=== PATIENT | female | born 1945 | race Caucasian/White ===

== ENCOUNTER 2018-07-09 06:40 | Inpatient (IN) | payer OTHER ==
[2018-07-02 14:07] LABS: BASOPHILS % (AUTO) 1.1 % (0.0-2.0); EOSINOPHILS % (AUTO) 9.2 % (1.0-6.0); HEMATOCRIT 41.6 % (36-46); HEMOGLOBIN 13.7 g/dL (12.0-16.0); LYMPHOCYTES # (AUTO) 3.2 K/uL (1.0-4.8); LYMPHOCYTES % (AUTO) 31.6 % (22.0-44.0); MEAN CORPUSCULAR HEMOGLOBIN 27.8 pg (26.0-34.0); MEAN CORPUSCULAR HGB CONC 32.9 G/dL (31.0-37.0); MEAN CORPUSCULAR VOLUME 85 fL (80-100); MONOCYTES # (AUTO) 0.8 K/uL (0.1-1.0); MONOCYTES % (AUTO) 7.9 % (2.0-9.0); NEUTROPHILS % (AUTO) 50.2 % (40.0-70.0); PLATELET COUNT (AUTO) 237 K/uL (150-450); RED BLOOD CELL COUNT(AUTO) 4.91 MIL/uL (4.00-5.20); RED CELL DISTRIBUTION WIDTH 13.5 % (11.5-14.5)
[2018-07-02 14:19] LABS: PROTHROMBIN TIME 10.7 SEC (9.4-11.6)
[2018-07-02 14:38] LABS: ALANINE AMINOTRANSFERASE 80 U/L (12-78); ALBUMIN 4.2 g/dL (3.4-5.0); ALKALINE PHOSPHATASE 121 U/L (46-116); ANION GAP 9 mmol/L (8-16); ASPARTATE AMINOTRANSFERASE 62 U/L (15-37); BILIRUBIN,TOTAL 0.8 mg/dL (0.1-1.0); CARBON DIOXIDE 31 mmol/L (22-29); CHLORIDE 94 mmol/L (98-107); POTASSIUM 4.7 mmol/L (3.5-5.1); SODIUM SERUM 134 mmol/L (136-145); TOTAL PROTEIN, SERUM 8.5 g/dL (6.4-8.2); UREA NITROGEN, BLOOD 14 mg/dL (7-18)
[2018-07-02 14:50] LABS: GLOMERULAR FILTR. RATE CALC > 60 mL/min (>60); GLUCOSE,RANDOM 544 mg/dL (70-110)
[~2018-07-09] VITALS: Ht 152.4 cm; Wt 79.5 kg
[~2018-07-09 06:40] MED LIST: RINGERS SOLUTION,LACTATED 0 ML IV ONE; RINGERS SOLUTION,LACTATED 1,000 ML IV ONE
[2018-07-09 06:54] LABS: GLUCOMETER DEV NAME(LOC) SDS.; GLUCOSE,POINT OF CARE 212 MG/DL (70-110)
[2018-07-09] MEDS ORDERED: SODIUM CL IRRIG SOLN BAG 0 ML IRRIG ONE (07:01)
[2018-07-09] MEDS ORDERED: BACITRACIN 50,000 UNITS/VIAL ONE (07:02)
[2018-07-09] MEDS ORDERED: BUPIVACAINE HCL/PF 0.5% 30 ML VIAL ONE (07:03)
[2018-07-09] MEDS ORDERED: SODIUM CHLORIDE 0.9% 0 ML ONE (07:04)
[2018-07-09 07:19] LABS: ALANINE AMINOTRANSFERASE 78 U/L (12-78); ALKALINE PHOSPHATASE 94 U/L (46-116); ANION GAP 8 mmol/L (8-16); ASPARTATE AMINOTRANSFERASE 74 U/L (15-37); BILIRUBIN,TOTAL 0.7 mg/dL (0.1-1.0); CALCIUM, TOTAL 9.9 mg/dL (8.8-10.5); CARBON DIOXIDE 29 mmol/L (22-29); CHLORIDE 102 mmol/L (98-107); CREATININE 0.75 mg/dL (0.60-1.30); GLUCOSE,RANDOM 216 mg/dL (70-110); POTASSIUM 4.5 mmol/L (3.5-5.1); SODIUM SERUM 139 mmol/L (136-145); UREA NITROGEN, BLOOD 19 mg/dL (7-18)
[2018-07-09 07:20] LABS: GLOMERULAR FILTR. RATE CALC > 60 mL/min (>60)
[2018-07-09] MEDS ORDERED: METF-445 PO (07:22)
[2018-07-09] MEDS ORDERED: VALS160T2 PO (07:22)
[2018-07-09] MEDS ORDERED: ATOR40TA28 PO (07:22)
== END 2018-07-09 07:45 | disposition home or self-care (01) | DRG 554 ==
LOC: 4E 06:40
PROVIDERS: ADMIT Orthopaedic Surgery; ATTEND Orthopaedic Surgery
DX: M17.11 Unilateral primary osteoarthritis, right knee (principal); E78.00 Pure hypercholesterolemia, unspecified; E11.9 Type 2 diabetes mellitus without complications; Z79.899 Other long term (current) drug therapy; Z79.82 Long term (current) use of aspirin; Z79.84 Long term (current) use of oral hypoglycemic drugs; Z90.710 Acquired absence of both cervix and uterus; Z98.891 History of uterine scar from previous surgery; Z85.42 Personal history of malignant neoplasm of other parts of uterus; Z85.3 Personal history of malignant neoplasm of breast
CPT/HCPCS: 83036; 87081; 93005; G0378; J3490; J7050; J7120

== ENCOUNTER 2018-11-12 07:37 | Inpatient (IN) | payer OTHER ==
[2018-11-05 12:34] LABS: BASOPHILS % (AUTO) 1.4 % (0.0-2.0); EOSINOPHILS % (AUTO) 14.7 % (1.0-6.0); HEMATOCRIT 38.5 % (36-46); LYMPHOCYTES # (AUTO) 2.8 K/uL (1.0-4.8); LYMPHOCYTES % (AUTO) 26.3 % (22.0-44.0); MEAN CORPUSCULAR HEMOGLOBIN 27.9 pg (26.0-34.0); MEAN CORPUSCULAR HGB CONC 33.6 G/dL (31.0-37.0); MEAN CORPUSCULAR VOLUME 83 fL (80-100); MONOCYTES # (AUTO) 0.8 K/uL (0.1-1.0); MONOCYTES % (AUTO) 7.3 % (2.0-9.0); NEUTROPHILS # (AUTO) 5.4 K/uL (1.8-7.7); NEUTROPHILS % (AUTO) 50.3 % (40.0-70.0); PLATELET COUNT (AUTO) 253 K/uL (150-450); RED BLOOD CELL COUNT(AUTO) 4.64 MIL/uL (4.00-5.20); RED CELL DISTRIBUTION WIDTH 14.1 % (11.5-14.5)
[2018-11-05 12:42] LABS: HEMOGLOBIN A1C 6.6 % (4.5-6.2)
[2018-11-05 12:47] LABS: ANION GAP 8 mmol/L (8-16); CALCIUM, TOTAL 10.2 mg/dL (8.8-10.5); CARBON DIOXIDE 29 mmol/L (22-29); CHLORIDE 102 mmol/L (98-107); GLUCOSE,RANDOM 96 mg/dL (70-110); POTASSIUM 4.2 mmol/L (3.5-5.1); SODIUM SERUM 139 mmol/L (136-145); UREA NITROGEN, BLOOD 21 mg/dL (7-18)
[2018-11-05 12:48] LABS: GLOMERULAR FILTR. RATE CALC > 60 mL/min (>60)
[2018-11-05 13:10] LABS: ALANINE AMINOTRANSFERASE 56 U/L (12-78); ALBUMIN 4.5 g/dL (3.4-5.0); ALKALINE PHOSPHATASE 99 U/L (46-116); ASPARTATE AMINOTRANSFERASE 45 U/L (15-37); BILIRUBIN,TOTAL 0.6 mg/dL (0.1-1.0); TOTAL PROTEIN, SERUM 8.8 g/dL (6.4-8.2)
[2018-11-05 13:22] LABS: PROTHROMBIN TIME 10.7 SEC (9.4-11.6)
[~2018-11-12] VITALS: Ht 152.4 cm; Wt 80.0 kg
[~2018-11-12 07:37] MED LIST changes: +ATOR40TA28 PO; +METF-445 PO; -RINGERS SOLUTION,LACTATED 0 ML IV ONE; +VALS160T2 PO
[2018-11-12 08:51] LABS: GLUCOMETER DEV NAME(LOC) SDS.; GLUCOSE,POINT OF CARE 104 MG/DL (70-110)
[2018-11-12] MEDS ORDERED: ACETAMINOPHEN 1000 MG/ISO-OSM 100 ML IV ONE (09:00)
[2018-11-12] MEDS ORDERED: CELECOXIB 200 MG CAPSULE PO ONE (09:00)
[2018-11-12] MEDS ORDERED: TRANEXAMIC ACID 1,000 MG in DEXTROSE 5%-WATER 50 ML IV ONE (09:30)
[2018-11-12] MEDS ORDERED: BUPIVACAINE LIPOSOME/PF 1.3%-13.3MG/ML SUSPENSION 20 ML VIAL INJ ONE (09:30)
[2018-11-12] MEDS ORDERED: BUPIVACAINE HCL/PF 0.5% 30 ML VIAL ONE (09:32)
[2018-11-12] MEDS ORDERED: SODIUM CHLORIDE 0.9% 100 ML ONE (09:32)
[2018-11-12] MEDS ORDERED: BACITRACIN 50,000 UNITS/VIAL ONE (09:33)
[2018-11-12] MEDS ORDERED: SODIUM CL IRRIG SOLN BAG 3,000 ML IRRIG ONE (09:33)
[2018-11-12] MEDS ORDERED: FentaNYL CITRATE-PF 100 MCG/2 ML VIAL IVP PRN (11:00)
[2018-11-12] MEDS ORDERED: HYDROmorphone 2 MG/ML SYRINGE IVP PRN (11:00)
[2018-11-12] MEDS ORDERED: ONDANSETRON HCL 4 MG/2 ML VIAL IVP PRN (12:15)
[2018-11-12] MEDS ORDERED: DiphenhydrAMINE HCL 50 MG/ML VIAL IVP PRN (12:15)
[2018-11-12] MEDS ORDERED: MAG HYDROX/AL HYDROX/SIMETH 30 ML SUSP UDCUP PO PRN (12:15)
[2018-11-12] MEDS ORDERED: ZOLPIDEM TARTRATE 10 MG TABLET PO PRN (12:15)
[2018-11-12] MEDS ORDERED: BISACODYL 10 MG RECTAL RECTAL SUPPOSITORY PR PRN (12:15)
[2018-11-12] MEDS ORDERED: BACITRACIN 28.4 GM OINTMENT TP PRN (12:15)
[2018-11-12] MEDS: OxyCODONE HCL/ACETAMINOPHEN 5-325 MG TABLET PO PRN ×2 (15:32→19:50)
[2018-11-12] MEDS: CYCLOBENZAPRINE HCL 10 MG TABLET PO PRN (15:33)
[2018-11-12] MEDS: DEXTROSE 5%-LACTATED RINGERS 1,000 ML IV SCH (15:47)
[2018-11-12 15:49] VITALS: BP 114/57
[2018-11-12] MEDS ORDERED: INFLUENZA VIRUS VACCINE QVS 2019-20 (3YR+)/PF 60 MCG/0.5 ML SYRINGE IM ONE (17:45)
[2018-11-12] MEDS: MetFORMIN HCL 850 MG TABLET PO SCH (19:14)
[2018-11-12 19:45] VITALS: BP 124/66
[2018-11-12] MEDS: FAMOTIDINE 20 MG TABLET PO SCH (19:49)
[2018-11-12] MEDS: DOCUSATE SODIUM 100 MG CAPSULE PO SCH (19:50)
[2018-11-12] MEDS: CELECOXIB 100 MG CAPSULE PO SCH (19:50)
[2018-11-12] MEDS: CeFAZolin 1 GM/DEXTROSE 50 ML IV SCH (19:50)
[2018-11-12] MEDS ORDERED: OXYGEN THERAPY IH SCH (20:00)
[2018-11-12 23:59] VITALS: BP 100/60
[2018-11-13] MEDS: CeFAZolin 1 GM/DEXTROSE 50 ML IV SCH (03:54)
[2018-11-13] MEDS: OxyCODONE HCL/ACETAMINOPHEN 5-325 MG TABLET PO PRN ×4 (03:55→19:35)
[2018-11-13] MEDS: DEXTROSE 5%-LACTATED RINGERS 1,000 ML IV SCH (03:56)
[2018-11-13 04:46] VITALS: BP 116/64
[2018-11-13] MEDS ORDERED: ONDANSETRON HCL 4 MG/2 ML VIAL IVP ONE (05:37)
[2018-11-13] MEDS ORDERED: DEXAMETHASONE SOD PHOS 4 MG/ML VIAL IVP ONE (05:37)
[2018-11-13] MEDS ORDERED: PROPOFOL 1% 20 ML VIAL IVP ONE (05:37)
[2018-11-13] MEDS ORDERED: LIDOCAINE/PF 2% 5 ML VIAL IM ONE (05:37)
[2018-11-13] MEDS ORDERED: MIDAZOLAM HCL 2 MG/2 ML VIAL IVP ONE (05:48)
[2018-11-13] MEDS ORDERED: FentaNYL CITRATE-PF 100 MCG/2 ML VIAL IVP ONE (05:48)
[2018-11-13 07:01] LABS: BASOPHILS % (AUTO) 0.3 % (0.0-2.0); EOSINOPHILS % (AUTO) 0.3 % (1.0-6.0); HEMATOCRIT 29.9 % (36-46); HEMOGLOBIN 9.8 g/dL (12.0-16.0); LYMPHOCYTES # (AUTO) 1.8 K/uL (1.0-4.8); LYMPHOCYTES % (AUTO) 17.7 % (22.0-44.0); MEAN CORPUSCULAR HEMOGLOBIN 27.6 pg (26.0-34.0); MEAN CORPUSCULAR HGB CONC 32.7 G/dL (31.0-37.0); MEAN CORPUSCULAR VOLUME 84 fL (80-100); MONOCYTES # (AUTO) 1.3 K/uL (0.1-1.0); MONOCYTES % (AUTO) 12.7 % (2.0-9.0); NEUTROPHILS # (AUTO) 7.1 K/uL (1.8-7.7); PLATELET COUNT (AUTO) 212 K/uL (150-450); RED BLOOD CELL COUNT(AUTO) 3.54 MIL/uL (4.00-5.20); RED CELL DISTRIBUTION WIDTH 14.3 % (11.5-14.5)
[2018-11-13 08:15] VITALS: BP 122/57
[2018-11-13] MEDS: MetFORMIN HCL 850 MG TABLET PO SCH ×2 (08:32→17:33)
[2018-11-13] MEDS: ATORVASTATIN CALCIUM 40 MG TABLET PO SCH (08:32)
[2018-11-13] MEDS: VALSARTAN 160 MG TABLET PO SCH (08:32)
[2018-11-13] MEDS: DOCUSATE SODIUM 100 MG CAPSULE PO SCH ×2 (08:32→19:35)
[2018-11-13] MEDS: FAMOTIDINE 20 MG TABLET PO SCH ×2 (08:32→19:35)
[2018-11-13] MEDS: CELECOXIB 100 MG CAPSULE PO SCH ×2 (08:32→19:35)
[2018-11-13] MEDS: RIVAROXABAN 10 MG TABLET PO SCH (10:38)
[2018-11-13 13:16] VITALS: BP 127/71
[2018-11-13 16:43] VITALS: BP 144/69
[2018-11-13 20:49] VITALS: BP 127/64
[2018-11-13] MEDS: CYCLOBENZAPRINE HCL 10 MG TABLET PO PRN (21:51)
[2018-11-13 23:30] VITALS: BP 124/66
[2018-11-14] MEDS: OxyCODONE HCL/ACETAMINOPHEN 5-325 MG TABLET PO PRN ×3 (02:31→15:51)
[2018-11-14 04:00] VITALS: BP 120/59
[2018-11-14 05:49] LABS: BASOPHILS % (AUTO) 0.7 % (0.0-2.0); EOSINOPHILS % (AUTO) 8.7 % (1.0-6.0); HEMATOCRIT 29.9 % (36-46); HEMOGLOBIN 9.8 g/dL (12.0-16.0); LYMPHOCYTES # (AUTO) 3.3 K/uL (1.0-4.8); LYMPHOCYTES % (AUTO) 29.8 % (22.0-44.0); MEAN CORPUSCULAR HEMOGLOBIN 27.7 pg (26.0-34.0); MEAN CORPUSCULAR HGB CONC 32.9 G/dL (31.0-37.0); MEAN CORPUSCULAR VOLUME 84 fL (80-100); MONOCYTES # (AUTO) 1.4 K/uL (0.1-1.0); MONOCYTES % (AUTO) 12.6 % (2.0-9.0); NEUTROPHILS # (AUTO) 5.4 K/uL (1.8-7.7); NEUTROPHILS % (AUTO) 48.2 % (40.0-70.0); PLATELET COUNT (AUTO) 212 K/uL (150-450); RED BLOOD CELL COUNT(AUTO) 3.56 MIL/uL (4.00-5.20); RED CELL DISTRIBUTION WIDTH 14.2 % (11.5-14.5)
[2018-11-14 06:02] LABS: ANION GAP 8 mmol/L (8-16); CALCIUM, TOTAL 8.9 mg/dL (8.8-10.5); CARBON DIOXIDE 30 mmol/L (22-29); CHLORIDE 105 mmol/L (98-107); CREATININE 0.71 mg/dL (0.60-1.30); GLUCOSE,RANDOM 95 mg/dL (70-110); POTASSIUM 3.9 mmol/L (3.5-5.1); SODIUM SERUM 143 mmol/L (136-145); UREA NITROGEN, BLOOD 15 mg/dL (7-18)
[2018-11-14 06:03] LABS: GLOMERULAR FILTR. RATE CALC > 60 mL/min (>60)
[2018-11-14 07:36] VITALS: BP 117/58
[2018-11-14] MEDS: DOCUSATE SODIUM 100 MG CAPSULE PO SCH (10:08)
[2018-11-14] MEDS: MetFORMIN HCL 850 MG TABLET PO SCH ×2 (10:08→17:58)
[2018-11-14] MEDS: FAMOTIDINE 20 MG TABLET PO SCH (10:08)
[2018-11-14] MEDS: VALSARTAN 160 MG TABLET PO SCH (10:09)
[2018-11-14] MEDS: CELECOXIB 100 MG CAPSULE PO SCH (10:09)
[2018-11-14] MEDS: ATORVASTATIN CALCIUM 40 MG TABLET PO SCH (10:09)
[2018-11-14 11:34] VITALS: BP 119/59
[2018-11-14 16:00] VITALS: BP 138/66
[2018-11-14 16:10] LABS: GLUCOMETER DEV NAME(LOC) 6N.2; GLUCOSE,POINT OF CARE 87 MG/DL (70-110)
[2018-11-14] MEDS: RIVAROXABAN 10 MG TABLET PO SCH (17:58)
== END 2018-11-14 18:00 | DRG 470 ==
LOC: 6N 07:37 → 4E 12:55
PROVIDERS: ADMIT Orthopaedic Surgery; ATTEND Orthopaedic Surgery
PROC: 0SRC0J9 Replacement of Right Knee Joint with Synthetic Substitute, Cemented, Open Approach (ICD-10-PCS; principal; 2018-11-12 10:00)
DX: M17.11 Unilateral primary osteoarthritis, right knee (principal); E11.9 Type 2 diabetes mellitus without complications; E78.5 Hyperlipidemia, unspecified; I10 Essential (primary) hypertension; E78.00 Pure hypercholesterolemia, unspecified; Z28.21 Immunization not carried out because of patient refusal; Z79.899 Other long term (current) drug therapy
CPT/HCPCS: 83036; 87081; 88300; 93005; 97110; 97116; 97161; 97165; 97530; 97535; C9290; G0238; G0378; J0131; J0690; J1100; J1170; J2250; J2405; J2704; J3010; J3490; J7050; J7060; J7120